=== PATIENT | female | born 1995 | race Two or more races ===

== ENCOUNTER → 2021-04-06 | Outpatient (CLI) | payer OTHER ==
[2021-04-06 16:19] LABS: BASO % 0.5 % (0.0-1.0); EOS % 0.2 % (0.0-3.0); HEMATOCRIT 38.7 % (36.0-47.0); HEMOGLOBIN 12.9 g/dl (12.0-15.5); LYMPH # 1.1 10^3/uL (1.5-5.0); LYMPH % 16.1 % (24.0-44.0); MEAN CORPUSCULAR HEMOGLOBIN 28.8 pg (27.0-33.0); MEAN CORPUSCULAR HGB CONC 33.3 g/dl (32.0-36.5); MEAN CORPUSCULAR VOLUME 86.4 fl (80.0-96.0); MONO # 0.4 10^3/uL (0.0-0.8); MONO % 5.7 % (2.0-8.0); PLATELET COUNT, AUTOMATED 166 10^3/uL (150-450); RED BLOOD COUNT 4.48 10^6/uL (4.00-5.40); WHITE BLOOD COUNT 6.5 10^3/uL (4.0-10.0)
[2021-04-06 17:11] LABS: ERYTHROCYTE SEDIMENTATION RATE 10 mm/hr (0-20)
[2021-04-06 17:14] LABS: C REACTIVE PROTEIN QUANTITATIV 0.44 MG/DL (0.00-0.30); RHEUMATOID FACTOR QUANT < 10.0 IU/ML (<15.0)
== END ==
LOC: M WUC 15:05
PROVIDERS: ATTEND Orthopaedic Surgery
DX: M25.551 Pain in right hip (principal)

== ENCOUNTER → 2021-05-04 | Outpatient (CLI) | payer OTHER ==
[2021-05-04 14:30] LABS: HCG, SERUM QUALITATIVE NEGATIVE (NEGATIVE)
== END ==
LOC: M LAB 12:44
PROVIDERS: ATTEND Nurse Practitioner Family
DX: N91.2 Amenorrhea, unspecified (principal)

== ENCOUNTER → 2021-05-16 | Outpatient (CLI) | payer OTHER ==
[~2021-05-16] MED LIST: ISOVUE-300 61% 50ML VIAL As Ordered ONE; PROHANCE 279.3MG/ML 5ML VIAL As Ordered ONE
--- NOTE | 2021-05-16 09:16 | REP ---
INDICATION: PAIN IN RT HIP. COMPARISON: None. TECHNIQUE: Precontrast imaging includes coronal T1 and T2-weighted scans of both hips. Precontrast high-resolution smaller field of view axial, coronal and sagittal T2 fat sat images are acquired of the right hip. The injection procedure is performed and dictated separately. Postcontrast T1 fat sat images are acquired in all 3 planes. FINDINGS: Precontrast T2 weighted bilateral coronal images show cortical and medullary bone signal intensity to be normal in the proximal femurs. There is no evidence to suggest avascular necrosis. The visualized bony pelvic ring is intact as well. No pelvic mass or adenopathy is seen. There is no evidence of hip joint effusion on either side. No periarticular bursal fluid collection is seen. Hamstring tendon insertions are unremarkable and symmetric. Head neck junction morphology is normal bilaterally. Post injection imaging shows good filling and enhancement of the right hip articulation. Ligamentum teres is intact. No loose body is seen. There is no evidence of labral cartilage tear. IMPRESSION: Normal MR arthrogram right hip. <Electronically signed by Figueroa Guerrero > 05/16/21 [id number]
--- NOTE | 2021-05-16 17:15 | REP ---
INDICATION: PAIN IN RT HIP. COMPARISON: None. TECHNIQUE: The procedure was performed under the direction supervision of Dr. Guerrero. The benefits and risks including but not limited to pain, infection, bleeding and anaphylaxis were explained to the patient and informed consent was obtained. The right femoral neck was localized using fluoroscopic guidance. Skin was prepped and draped in a sterile fashion. 1% lidocaine was used as a local anesthetic. Using fluoroscopic guidance, and last image hold technology, a 22 gauge spinal needle was inserted and advanced to the femoral neck. 0.5 ml of Isovue-300 was injected to verify placement. 11 ml of a solution containing 20 ml of sterile saline and 0.15 ml of ProHance was injected into the joint. The needle was removed and the patient was taken to MRI for postprocedural imaging. The patient tolerated the procedure well and there were no immediate complications. Less than 6 of fluoro time was utilized for this procedure. FINDINGS: None IMPRESSION: Fluoro guidance for right hip MRI arthrogram injection. <Electronically signed by Phoenix Chavez > 05/16/21 [id number] <Electronically signed by Figueroa Guerrero > 05/16/21 [id number]
== END ==
LOC: M RADPRO 06:18 → EDUNIT# 07:00
PROVIDERS: ATTEND Orthopaedic Surgery
DX: M25.551 Pain in right hip (principal)
CPT/HCPCS: 27093; 73723; 77002; A9576; Q9967

== ENCOUNTER → 2021-05-19 | Outpatient (CLI) | payer OTHER ==
[~2021-05-19] MED LIST changes: +diphenhydrAMINE 25MG CAP PO ONE
--- NOTE | 2021-05-19 09:40 | REP ---
INDICATION: LT HIP PAIN. COMPARISON: None. TECHNIQUE: Precontrast imaging includes coronal T1 and T2-weighted scans of both hips. Precontrast high-resolution smaller field of view axial, coronal and sagittal T2 fat sat images are acquired of the left hip. The injection procedure is performed and dictated separately. Postcontrast T1 fat sat images are acquired in all 3 planes. Please note: The patient experienced itching sensation of the head and neck skin during the scanning interval before the intra-articular contrast was injected. Following the postcontrast injected scan, the patient was noted to have some urticarial eruptions on the back the neck and chest skin with dermatographia. This was felt to be an allergic reaction. However, since the symptoms began before the injection, I did not feel it was a reaction to gadolinium or x-ray dye. There were no other signs or symptoms. 25 mg of p.o. Benadryl was administered. FINDINGS: Pre-injection images show cortical and medullary bone signal intensity is normal in the proximal femurs bilaterally. There is no evidence of avascular necrosis. There is a tiny bone island in the right femoral head. There is no evidence of pre-injection cyst joint effusion in either hip. Periarticular soft tissues are unremarkable. No pelvic mass or adenopathy is seen. Hamstring tendon insertion and other tendon insertions are unremarkable. No juxta-articular cyst or mass is seen. Post injection imaging shows good filling and enhancement of the left hip articulation. Ligamentum teres is intact. No loose body is seen. There is no evidence of the acetabular labral cartilage tear. IMPRESSION: Unremarkable MR arthrography left hip. <Electronically signed by Figueroa Guerrero > 05/19/21 [id number]
--- NOTE | 2021-05-19 12:50 | REP ---
INDICATION: LT HIP PAIN. COMPARISON: None. TECHNIQUE: The procedure was performed under the direction supervision of Dr. Guerrero. The benefits and risks including but not limited to pain, infection, bleeding and anaphylaxis were explained to the patient and informed consent was obtained. The left femoral neck was localized using fluoroscopic guidance. Skin was prepped and draped in a sterile fashion. 1% lidocaine was used as a local anesthetic. Using fluoroscopic guidance, and last image hold technology, a 22 gauge spinal needle was inserted and advanced to the femoral neck. 0.5 ml of Isovue-300 was injected to verify placement. 11 ml of a solution containing 20 ml of sterile saline and 0.15 ml of ProHance was injected into the joint. The needle was removed and the patient was taken to MRI for postprocedural imaging. The patient tolerated the procedure well and there were no immediate complications. Less than 6 seconds of fluoro time was utilized for this procedure. FINDINGS: None IMPRESSION: Fluoro guidance for left hip MRI arthrogram injection. <Electronically signed by Phoenix Chavez > 05/19/21 [id number] <Electronically signed by Figueroa Guerrero > 05/19/21 2076
== END ==
LOC: M RADPRO 06:47 → EDUNIT# 07:00
PROVIDERS: ATTEND Orthopaedic Surgery
DX: M25.552 Pain in left hip (principal); F32.1 Major depressive disorder, single episode, moderate; F41.1 Generalized anxiety disorder
CPT/HCPCS: 27093; 73723; 77002; 90834; A9576; Q9967

== ENCOUNTER → 2021-05-24 | Outpatient (CLI) | payer OTHER | LOC: M LAB 09:27 | PROVIDERS: ATTEND Physician Assistant Surgical | DX: M54.5 Low back pain (principal) ==

== ENCOUNTER → 2021-06-03 | Outpatient (CLI) | payer SELFPAY | LOC: M LABSMTC 09:58 | PROVIDERS: ATTEND Pediatrics | DX: Z20.822 Contact with and (suspected) exposure to COVID-19 (principal) ==